=== PATIENT | male | born 1950 | race Caucasian/White ===

== ENCOUNTER → 2020-08-03 09:12 | Outpatient (CLI) | payer MEDICARE, SELFPAY ==
--- NOTE | ~2020-08-03 | XR_ITS ---
XR elbow RT min 3V DATE: 08/03/2020 09:27 INDICATION: Right elbow pain TECHNIQUE: 4 views COMPARISON: None FINDINGS: There is elevation of anterior and posterior fat pads consistent with joint effusion. There is osteoarthritic change at the elbow joint, including joint space narrowing and spurring. No fracture, dislocation, periosteal reaction or bone destruction is evident. IMPRESSION: Osteoarthritis and joint effusion Reviewed, dictated and finalized at location A.
== END ==
PROVIDERS: PCP Family Medicine; Visit Provider Physician Assistant
DX: M25.521 Pain in right elbow (principal); M19.021 Primary osteoarthritis, right elbow; M25.421 Effusion, right elbow
CPT/HCPCS: 73080

== ENCOUNTER → 2022-07-10 12:57 | Outpatient (CLI) | payer MEDICARE, SELFPAY ==
--- NOTE | ~2022-07-10 | XR_ITS ---
XR hip RT 2V w AP pelvis 07/10/2022 13:20 Indication: Right hip pain Procedure: 3 views right hip Comparison: No prior studies for comparison. Findings: There is severe osteoarthritis of the right hip. No fracture or traumatic malalignment. Pel mike rings are intact. There is mild osteoarthritis of the left hip. Impression: 1: Severe osteoarthritis of the right hip. Reviewed, dictated and finalized at location B. Impression: 1: Severe osteoarthritis of the right hip.
== END ==
PROVIDERS: PCP Family Medicine; Visit Provider Physician Assistant
DX: M16.11 Unilateral primary osteoarthritis, right hip (principal)
CPT/HCPCS: 73502